=== PATIENT | female | born 1955 | race Asian ===

== ENCOUNTER 2017-02-08 20:09 | Emergency (ER) | payer SELFPAY ==
[~2017-02-08] VITALS: Ht 154.9 cm; Wt 61.2 kg
[2017-02-08 20:07] VITALS: BP 148/88
[2017-02-08] MEDS: Norco 5mg/325mg tab ORAL ONE ×2 (20:22→20:39)
[2017-02-08] MEDS ORDERED: IBUPROFEN600 MG ORAL (21:09)
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
[2017-02-08 21:18] VITALS: BP 144/87
[2017-02-08 21:19] VITALS: BP 148/88
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
== END 2017-02-08 21:19 | disposition home or self-care (01) ==
LOC: EDBD 20:09 → EMR 20:30
DX: S09.90XA Unspecified injury of head, initial encounter (principal); S80.02XA Contusion of left knee, initial encounter; V43.52XA Car driver injured in collision with other type car in traffic accident, initial encounter; Y93.9 Activity, unspecified; Y92.410 Unspecified street and highway as the place of occurrence of the external cause
CPT/HCPCS: 70450; 99284